=== PATIENT | male | born 1960 | race Two or more races ===

== ENCOUNTER 2017-08-30 10:34 | Inpatient (IN) | payer OTHER ==
[~2017-08-30] VITALS: Ht 170.2 cm; Wt 74.1 kg
[2017-08-30 11:09] LABS: Hematocrit 39.9 % (41.0-53.0); Hemoglobin 13.8 g/dL (13.5-17.5); Mean Corpuscular Hemoglobin 28.5 pg (28.0-32.0); Mean Corpuscular Hgb Conc. 34.7 g/dL (32.0-36.0); Mean Corpuscular Volume 82.2 fL (80.0-100.0); Platelet Count (auto) 82 10^3/uL (140-450); Red Blood Cells 4.86 10^6/uL (4.5-5.90); Red Cell Distribution Width 15.3 % (11.8-14.3); White Blood Cell 4.5 10^3/uL (4.4-10.8)
[2017-08-30 11:13] LABS: Band Neutrophils % (manual) 0; Basophils % (manual) 0 (0.0-2.0); Blast Cells 0; Metamyelocytes % 0; Myelocytes % 0; Promyelocytes % 0; Reactive Lymphocytes 0
[2017-08-30 11:22] LABS: INR 1.22 (0.9-1.15); Partial Thromboplastin Time 28.6 sec (22.64-33.71); Prothrombin Time 13.3 sec (9.37-12.3)
[2017-08-30 11:23] LABS: Lymphocytes % (manual) 37 (10.0-50.0)
[2017-08-30 11:24] LABS: Eosinophils % (manual) 5 (0-7); Monocytes % (manual) 24 (0-12)
[2017-08-30] MEDS ORDERED: LACTULOSE 20Gm/30ML SOLN PO ONE (11:30)
[2017-08-30 11:40] LABS: Alanine Aminotransferase 21 U/L (16-61); Albumin 2.7 g/dL (3.4-5.0); Alkaline Phosphatase 90 U/L (45-117); Anion Gap 8 (5-15); Aspartate Aminotransferase 24 U/L (15-37); BUN/Creatinine Ratio 18.3; Bilirubin, Total 1.6 mg/dL (0.2-1.0); Blood Urea Nitrogen 15 mg/dL (7-18); Calcium 8.5 mg/dL (8.5-10.1); Carbon Dioxide 22 mmol/L (21-32); Chloride 110 mmol/L (98-107); GFR African American 125 mL/min; GFR Non-African American 104 mL/min; Glucose 92 mg/dL (74-106); Magnesium 2.6 mg/dL (1.6-2.6); Potassium 3.8 mmol/L (3.5-5.1); Sodium 140 mmol/L (136-145); Total Protein 6.6 g/dL (6.4-8.2)
[2017-08-30] MEDS ORDERED: NITROGLYCERIN 0.4 MG SL TAB SL PRN (12:15)
[2017-08-30] MEDS ORDERED: MORPHINE SULFATE 4 MG/ML SYR/VIAL IV PRN (12:15)
[2017-08-30] MEDS ORDERED: PROPRANOLOL HCL 20 MG TAB PO ONE (12:16)
[2017-08-30 12:34] LABS: Urine Amorphous Crystal FEW /hpf (None Seen); Urine Bacteria NONE SEEN /hpf (None Seen); Urine Blood Negative /uL (Negative); Urine Specific Gravity 1.019 (1.001-1.035); Urine WBC 2 /hpf (0 - 3)
[2017-08-30 16:27] VITALS: BP 137/84
[2017-08-30] MEDS: LACTULOSE 20Gm/30ML SOLN PO SCH ×2 (17:34→22:26)
[2017-08-30 21:39] VITALS: BP 130/73
[2017-08-31] VITALS (7 sets, daily range): BP systolic 118–159; BP diastolic 66–99
[2017-08-31] MEDS: LACTULOSE 20Gm/30ML SOLN PO SCH ×6 (02:00→22:00)
[2017-08-31 05:58] LABS: Basophils # (auto) 0.2 uL; Basophils % (auto) 4.9 % (0.0-2.0); Eosinophils # (auto) 0.4 uL; Eosinophils % (auto) 10.2 % (0.0-7.0); Hematocrit 42.2 % (41.0-53.0); Hemoglobin 14.7 g/dL (13.5-17.5); Lymphocytes # (auto) 0.9 uL; Lymphocytes % (auto) 23.1 % (10.0-50.0); Mean Corpuscular Hemoglobin 28.9 pg (28.0-32.0); Mean Corpuscular Hgb Conc. 34.8 g/dL (32.0-36.0); Mean Corpuscular Volume 82.9 fL (80.0-100.0); Monocytes # (auto) 0.5 uL; Monocytes % (auto) 14.3 % (0.0-12.0); Neutrophils # (auto) 1.8 uL; Neutrophils % (auto) 47.5 % (37.0-80.0); Nucleated Red Blood Cells % 0.2 %; Platelet Count (auto) 99 10^3/uL (140-450); Red Blood Cells 5.09 10^6/uL (4.5-5.90); Red Cell Distribution Width 15.3 % (11.8-14.3); White Blood Cell 3.7 10^3/uL (4.4-10.8)
[2017-08-31 06:22] LABS: Albumin 2.8 g/dL (3.4-5.0); BUN/Creatinine Ratio 10.6; Calcium 8.2 mg/dL (8.5-10.1); Potassium 3.6 mmol/L (3.5-5.1)
[2017-08-31 06:26] LABS: Bilirubin, Total 2.8 mg/dL (0.2-1.0); Total Protein 6.6 g/dL (6.4-8.2)
[2017-08-31] MEDS ORDERED: PROPRANOLOL HCL 20 MG TAB PO ONE (10:00)
[2017-08-31] MEDS ORDERED: PROPRANOLOL HCL 20 MG TAB PO SCH (10:00)
[2017-08-31] MEDS: D5W/SOD CHL 0.45%/KCL 20MEQ 1,000 ML IV SCH (20:30)
[2017-09-01] MEDS: LACTULOSE 20Gm/30ML SOLN PO SCH ×6 (02:00→22:37)
[2017-09-01] MEDS: D5W/SOD CHL 0.45%/KCL 20MEQ 1,000 ML IV SCH ×3 (03:35→20:15)
[2017-09-01 05:00] VITALS: BP 109/67
[2017-09-01 07:40] LABS: Albumin 2.7 g/dL (3.4-5.0); Bilirubin, Total 2.5 mg/dL (0.2-1.0); Calcium 8.3 mg/dL (8.5-10.1); Potassium 3.8 mmol/L (3.5-5.1); Total Protein 6.4 g/dL (6.4-8.2)
[2017-09-01 08:00] VITALS: BP 120/72
[2017-09-01 09:24] VITALS: BP 120/72
[2017-09-01] MEDS: PROPRANOLOL HCL 20 MG TAB PO SCH ×2 (11:41→22:36)
[2017-09-01 12:50] VITALS: BP 127/73
[2017-09-01 17:27] VITALS: BP 116/69
[2017-09-01 22:16] VITALS: BP 125/66
[2017-09-02] VITALS (7 sets, daily range): BP systolic 110–127; BP diastolic 63–68
[2017-09-02] MEDS: LACTULOSE 20Gm/30ML SOLN PO SCH ×6 (02:00→22:42)
[2017-09-02] MEDS: D5W/SOD CHL 0.45%/KCL 20MEQ 1,000 ML IV SCH ×3 (06:30→21:21)
[2017-09-02 07:56] LABS: Albumin 2.4 g/dL (3.4-5.0); BUN/Creatinine Ratio 10.5; Bilirubin, Total 2.1 mg/dL (0.2-1.0); Calcium 7.9 mg/dL (8.5-10.1); Potassium 3.9 mmol/L (3.5-5.1)
[2017-09-02] MEDS: PROPRANOLOL HCL 20 MG TAB PO SCH ×2 (10:46→22:43)
[2017-09-03] MEDS: LACTULOSE 20Gm/30ML SOLN PO SCH ×6 (01:51→22:26)
[2017-09-03] MEDS: D5W/SOD CHL 0.45%/KCL 20MEQ 1,000 ML IV SCH ×3 (04:28→22:27)
[2017-09-03 05:07] VITALS: BP 104/72
[2017-09-03] MEDS: PROPRANOLOL HCL 20 MG TAB PO SCH ×2 (09:13→22:27)
[2017-09-03 09:17] VITALS: BP 121/68
[2017-09-03 14:12] VITALS: BP 127/79
[2017-09-03 14:31] LABS: Basophils # (auto) 0 uL; Basophils % (auto) 0.3 % (0.0-2.0); Eosinophils # (auto) 0.4 uL; Eosinophils % (auto) 7.3 % (0.0-7.0); Hematocrit 41.6 % (41.0-53.0); Hemoglobin 14.5 g/dL (13.5-17.5); Lymphocytes # (auto) 0.3 uL; Lymphocytes % (auto) 5.8 % (10.0-50.0); Mean Corpuscular Hemoglobin 29.1 pg (28.0-32.0); Mean Corpuscular Hgb Conc. 34.8 g/dL (32.0-36.0); Mean Corpuscular Volume 83.7 fL (80.0-100.0); Monocytes # (auto) 0.5 uL; Monocytes % (auto) 8.8 % (0.0-12.0); Neutrophils # (auto) 4.1 uL; Neutrophils % (auto) 77.8 % (37.0-80.0); Nucleated Red Blood Cells % 0.2 %; Platelet Count (auto) 80 10^3/uL (140-450); Red Blood Cells 4.97 10^6/uL (4.5-5.90); Red Cell Distribution Width 15.4 % (11.8-14.3); White Blood Cell 5.3 10^3/uL (4.4-10.8)
[2017-09-03] MEDS: MEPERIDINE HCL (50 MG/ML) 1 ML VIAL IV PRN ×2 (14:37→22:50)
[2017-09-03] MEDS: ONDANSETRON HCL 4 MG/2 ML VIAL IV PRN ×2 (14:37→22:50)
[2017-09-03] MEDS: NEOMYCIN SULFATE 500 MG TAB PO SCH ×2 (14:47→22:27)
[2017-09-03 14:50] LABS: Albumin 2.7 g/dL (3.4-5.0); BUN/Creatinine Ratio 6.9; Bilirubin, Total 2.8 mg/dL (0.2-1.0); Calcium 8.3 mg/dL (8.5-10.1); Potassium 4.2 mmol/L (3.5-5.1); Total Protein 6.4 g/dL (6.4-8.2)
[2017-09-03 17:26] VITALS: BP 115/87
[2017-09-03 20:00] VITALS: BP 122/61
[2017-09-03 22:00] VITALS: BP 122/61
[2017-09-04] MEDS: LACTULOSE 20Gm/30ML SOLN PO SCH ×6 (01:40→22:55)
[2017-09-04 05:00] VITALS: BP 105/65
[2017-09-04] MEDS: NEOMYCIN SULFATE 500 MG TAB PO SCH ×3 (05:52→22:56)
[2017-09-04] MEDS: D5W/SOD CHL 0.45%/KCL 20MEQ 1,000 ML IV SCH ×2 (05:53→09:30)
[2017-09-04] MEDS: ONDANSETRON HCL 4 MG/2 ML VIAL IV PRN ×3 (06:37→18:15)
[2017-09-04] MEDS: MEPERIDINE HCL (50 MG/ML) 1 ML VIAL IV PRN ×4 (06:37→22:56)
[2017-09-04 09:00] VITALS: BP 101/62
[2017-09-04] MEDS: PROPRANOLOL HCL 20 MG TAB PO SCH ×2 (09:30→22:00)
[2017-09-04 12:00] VITALS: BP 118/58
[2017-09-04 16:00] VITALS: BP_SYST 118; BP_SYST 132; BP_DIAS 71; BP_DIAS 77
[2017-09-04 22:00] VITALS: BP 122/66
[2017-09-05] MEDS: D5W/SOD CHL 0.45%/KCL 20MEQ 1,000 ML IV SCH ×3 (01:07→15:49)
[2017-09-05] MEDS: LACTULOSE 20Gm/30ML SOLN PO SCH ×5 (02:01→22:35)
[2017-09-05] MEDS: MEPERIDINE HCL (50 MG/ML) 1 ML VIAL IV PRN ×4 (04:07→20:02)
[2017-09-05 05:00] VITALS: BP 101/59
[2017-09-05] MEDS: NEOMYCIN SULFATE 500 MG TAB PO SCH ×3 (05:34→22:36)
[2017-09-05 09:00] VITALS: BP 110/60
[2017-09-05] MEDS: PROPRANOLOL HCL 20 MG TAB PO SCH ×2 (10:00→22:36)
[2017-09-05 12:23] VITALS: BP 116/59
[2017-09-05 16:45] VITALS: BP 112/59
[2017-09-05 22:00] VITALS: BP 111/67
[2017-09-06] MEDS: D5W/SOD CHL 0.45%/KCL 20MEQ 1,000 ML IV SCH ×3 (00:15→14:18)
[2017-09-06] MEDS: MEPERIDINE HCL (50 MG/ML) 1 ML VIAL IV PRN ×4 (04:10→20:14)
[2017-09-06 05:00] VITALS: BP 130/68
[2017-09-06] MEDS: LACTULOSE 20Gm/30ML SOLN PO SCH ×4 (05:57→22:03)
[2017-09-06] MEDS: NEOMYCIN SULFATE 500 MG TAB PO SCH ×3 (05:57→22:03)
[2017-09-06 07:23] LABS: Calcium 7.2 mg/dL (8.5-10.1); Potassium 5.3 mmol/L (3.5-5.1)
[2017-09-06 07:26] LABS: BUN/Creatinine Ratio 8.9; Bilirubin, Total 1.9 mg/dL (0.2-1.0)
[2017-09-06 09:00] VITALS: BP 111/60
[2017-09-06] MEDS: PROPRANOLOL HCL 20 MG TAB PO SCH ×2 (10:00→22:00)
[2017-09-06 13:00] VITALS: BP 119/48
[2017-09-06 17:00] VITALS: BP 102/57
[2017-09-06] MEDS: NutriHep 250 mL Bottle PO SCH (18:00)
[2017-09-06 22:00] VITALS: BP 102/66
[2017-09-06 22:02] VITALS: BP 102/66
[2017-09-07] MEDS: D5W/SOD CHL 0.45%/KCL 20MEQ 1,000 ML IV SCH ×2 (00:25→09:35)
[2017-09-07] MEDS: LACTULOSE 20Gm/30ML SOLN PO SCH ×6 (02:12→22:05)
[2017-09-07] MEDS: MEPERIDINE HCL (50 MG/ML) 1 ML VIAL IV PRN ×2 (02:13→08:42)
[2017-09-07 05:48] VITALS: BP 112/60
[2017-09-07] MEDS: NEOMYCIN SULFATE 500 MG TAB PO SCH ×3 (06:03→22:05)
[2017-09-07 07:49] LABS: Albumin 2.4 g/dL (3.4-5.0); BUN/Creatinine Ratio 13.2; Bilirubin, Total 1.6 mg/dL (0.2-1.0); Calcium 7.9 mg/dL (8.5-10.1); Potassium 3.9 mmol/L (3.5-5.1); Total Protein 5.8 g/dL (6.4-8.2)
[2017-09-07] MEDS: NutriHep 250 mL Bottle PO SCH ×2 (08:00→18:00)
[2017-09-07 09:46] VITALS: BP 121/67
[2017-09-07] MEDS: PROPRANOLOL HCL 20 MG TAB PO SCH ×2 (10:44→22:00)
[2017-09-07 13:57] VITALS: BP 97/49
[2017-09-07] MEDS: traMADol HCL 50 MG TAB PO PRN ×2 (14:27→22:17)
[2017-09-07 16:48] VITALS: BP 126/68
[2017-09-07 21:36] VITALS: BP 116/72
[2017-09-08] MEDS: LACTULOSE 20Gm/30ML SOLN PO SCH ×5 (02:08→17:42)
[2017-09-08] MEDS: traMADol HCL 50 MG TAB PO PRN ×2 (04:51→17:42)
[2017-09-08 05:22] VITALS: BP 118/69
[2017-09-08] MEDS: NEOMYCIN SULFATE 500 MG TAB PO SCH ×2 (06:23→15:34)
[2017-09-08 08:00] VITALS: BP 105/54
[2017-09-08] MEDS: PROPRANOLOL HCL 20 MG TAB PO SCH (09:16)
[2017-09-08] MEDS: NutriHep 250 mL Bottle PO SCH ×2 (09:16→17:47)
[2017-09-08 12:00] VITALS: BP 122/48
[2017-09-08 16:47] VITALS: BP 107/41
[2017-09-08 22:00] VITALS: BP 112/62
[2017-09-09] MEDS: traMADol HCL 50 MG TAB PO PRN ×3 (00:26→20:08)
[2017-09-09] MEDS: NEOMYCIN SULFATE 500 MG TAB PO SCH ×3 (00:26→13:58)
[2017-09-09] MEDS: LACTULOSE 20Gm/30ML SOLN PO SCH ×7 (00:26→17:48)
[2017-09-09] MEDS: PROPRANOLOL HCL 20 MG TAB PO SCH ×3 (00:26→22:00)
[2017-09-09 04:58] VITALS: BP 114/70
[2017-09-09 07:28] LABS: BUN/Creatinine Ratio 13.3; Potassium 3.9 mmol/L (3.5-5.1)
[2017-09-09] MEDS: NutriHep 250 mL Bottle PO SCH ×2 (08:00→17:48)
[2017-09-09 08:42] VITALS: BP 118/63
[2017-09-09 12:55] VITALS: BP 120/65
[2017-09-09 16:28] VITALS: BP 122/71
[2017-09-09 22:00] VITALS: BP 101/56
[2017-09-10] VITALS (7 sets, daily range): BP systolic 105–125; BP diastolic 57–72
[2017-09-10] MEDS: LACTULOSE 20Gm/30ML SOLN PO SCH ×10 (00:22→22:12)
[2017-09-10] MEDS: PROPRANOLOL HCL 20 MG TAB PO SCH ×2 (10:00→22:00)
[2017-09-10] MEDS: NutriHep 250 mL Bottle PO SCH ×2 (10:22→18:31)
[2017-09-10] MEDS: traMADol HCL 50 MG TAB PO PRN ×2 (12:34→18:38)
[2017-09-11] VITALS (7 sets, daily range): BP systolic 109–135; BP diastolic 57–74
[2017-09-11] MEDS: LACTULOSE 20Gm/30ML SOLN PO SCH ×9 (00:01→21:38)
[2017-09-11] MEDS: traMADol HCL 50 MG TAB PO PRN ×3 (00:34→21:39)
[2017-09-11 06:05] LABS: BUN/Creatinine Ratio 12.2; Calcium 7.9 mg/dL (8.5-10.1); Potassium 3.9 mmol/L (3.5-5.1)
[2017-09-11] MEDS: NutriHep 250 mL Bottle PO SCH ×2 (08:17→18:00)
[2017-09-11] MEDS: PROPRANOLOL HCL 20 MG TAB PO SCH ×2 (10:00→21:39)
[2017-09-12] MEDS: LACTULOSE 20Gm/30ML SOLN PO SCH ×4 (01:45→14:00)
[2017-09-12 05:20] VITALS: BP 129/67
[2017-09-12 07:01] LABS: BUN/Creatinine Ratio 11.3; Calcium 7.8 mg/dL (8.5-10.1); Potassium 3.6 mmol/L (3.5-5.1)
[2017-09-12] MEDS: NutriHep 250 mL Bottle PO SCH (08:00)
[2017-09-12 09:00] VITALS: BP 122/71
[2017-09-12] MEDS: PROPRANOLOL HCL 20 MG TAB PO SCH (10:00)
[2017-09-12] MEDS ORDERED: LACT10SO3 PO (12:47)
[2017-09-12 13:00] VITALS: BP 136/64
[2017-09-12 13:37] VITALS: BP 122/71
[2017-09-12] MEDS: traMADol HCL 50 MG TAB PO PRN (16:16)
[2017-09-12 17:00] VITALS: BP 128/66
== END 2017-09-12 17:35 | DRG 441 ==
LOC: EDBD 10:34 → ER 10:34 → OVERFLOW 10:35 → EEVIPCON 10:35 → EAST 13:22
PROVIDERS: ADMIT Internal Medicine; ATTEND Internal Medicine
DX: K72.00 Acute and subacute hepatic failure without coma (principal); E43 Unspecified severe protein-calorie malnutrition; I11.9 Hypertensive heart disease without heart failure; K72.10 Chronic hepatic failure without coma; K74.60 Unspecified cirrhosis of liver; E72.20 Disorder of urea cycle metabolism, unspecified; B19.20 Unspecified viral hepatitis C without hepatic coma; F32.9 Major depressive disorder, single episode, unspecified; R16.1 Splenomegaly, not elsewhere classified; K80.20 Calculus of gallbladder without cholecystitis without obstruction; F41.9 Anxiety disorder, unspecified; J44.9 Chronic obstructive pulmonary disease, unspecified; E78.00 Pure hypercholesterolemia, unspecified; Z82.49 Family history of ischemic heart disease and other diseases of the circulatory system; Z68.25 Body mass index [BMI] 25.0-25.9, adult; Z90.49 Acquired absence of other specified parts of digestive tract
CPT/HCPCS: 36415; 70450; 71045; 74021; 74176; 76705; 80048; 80053; 81001; 82140; 82150; 83690; 83735; 84443; 84484; 85007; 85025; 85027; 85610; 85730; 87081; 94761; J2405

== ENCOUNTER 2018-02-12 20:17 | Inpatient (IN) | payer OTHER ==
[~2018-02-12] VITALS: Ht 167.6 cm; Wt 74.9 kg
[~2018-02-12 20:17] MED LIST: LACT10SO3 PO
[2018-02-12] MEDS ORDERED: SODIUM CHLORIDE 0.9% 500 ML IVB ONE (21:06)
[2018-02-12] MEDS ORDERED: PROMETHAZINE HCL 25 MG/ML 1ML IV ONE (21:15)
[2018-02-12] MEDS ORDERED: MORPHINE SULFATE 4 MG/ML SYR/VIAL IV ONE (21:15)
[2018-02-12] MEDS ORDERED: ACETAMINOPHEN 325 MG TAB PO ONE (21:30)
[2018-02-12] MEDS ORDERED: metroNIDAZOLE 500MG/100ML 100 ML IV ONE (21:30)
[2018-02-12 21:57] LABS: Hemoglobin 13.2 g/dL (13.5-17.5); Mean Corpuscular Hemoglobin 30.4 pg (28.0-32.0); Mean Corpuscular Hgb Conc. 35.8 g/dL (32.0-36.0); Mean Corpuscular Volume 84.9 fL (80.0-100.0); Platelet Count (auto) 74 10^3/uL (140-450); Red Blood Cells 4.36 10^6/uL (4.5-5.90); Red Cell Distribution Width 15.8 % (11.8-14.3); White Blood Cell 4.9 10^3/uL (4.4-10.8)
[2018-02-12 21:59] LABS: Basophils % (manual) 0 (0.0-2.0); Blast Cells 0; Eosinophils % (manual) 0 (0-7); Metamyelocytes % 0; Myelocytes % 0; Promyelocytes % 0; Reactive Lymphocytes 0
[2018-02-12 22:02] LABS: INR 1.26 (0.9-1.15); Prothrombin Time 13.3 sec (9.27-12.13)
[2018-02-12 22:17] LABS: Albumin 2.2 g/dL (3.4-5.0); Amylase 111 U/L (25-115); Anion Gap 11 (5-15); BUN/Creatinine Ratio 24.4; Blood Urea Nitrogen 20 mg/dL (7-18); Calcium 7.6 mg/dL (8.5-10.1); Carbon Dioxide 18 mmol/L (21-32); Chloride 110 mmol/L (98-107); GFR African American 125 mL/min; GFR Non-African American 103 mL/min; Glucose 90 mg/dL (74-106); Lipase 171 U/L (73-393); Magnesium 1.9 mg/dL (1.6-2.6); Potassium 3.1 mmol/L (3.5-5.1); Sodium 139 mmol/L (136-145)
[2018-02-12 22:22] LABS: Alanine Aminotransferase 18 U/L (16-61); Alkaline Phosphatase 84 U/L (45-117); Aspartate Aminotransferase 20 U/L (15-37); Bilirubin, Total 3.5 mg/dL (0.2-1.0); Lactic Acid w/Reflex 2.3 mmol/L (0.4-2.0); Total Protein 5.5 g/dL (6.4-8.2)
[2018-02-12 22:26] LABS: Band Neutrophils % (manual) 1; Lymphocytes % (manual) 2 (10.0-50.0); Monocytes % (manual) 1 (0-12)
[2018-02-13] MEDS ORDERED: ONDANSETRON HCL 4 MG/2 ML VIAL IV PRN ×2 (02:15→12:15)
[2018-02-13] MEDS ORDERED: fentaNYL CITRATE 100 MCG/2 ML VL IV PRN (02:30)
[2018-02-13] MEDS: D5W/SOD CHL 0.45%/KCL 20MEQ 1,000 ML IV SCH ×3 (02:39→22:14)
[2018-02-13 03:30] VITALS: BP 107/62
[2018-02-13 05:00] VITALS: BP 113/69
[2018-02-13 08:00] VITALS: BP 109/67
[2018-02-13] MEDS: PIPERACILLIN-TAZOB 3.375GM 100 ML IV SCH ×3 (08:17→18:12)
[2018-02-13] MEDS: FAMOTIDINE 20 MG TAB PO SCH ×2 (10:00→22:14)
[2018-02-13 12:00] VITALS: BP 106/56
[2018-02-13] MEDS: MORPHINE SULF INJ 2 MG/ML SYRINGE 1ML IV PRN ×3 (12:28→22:15)
[2018-02-13 16:00] VITALS: BP 105/58
[2018-02-13] MEDS: LACTULOSE 20Gm/30ML SOLN PO SCH ×2 (18:12→22:14)
[2018-02-13 22:00] VITALS: BP 114/65
[2018-02-13] MEDS: PANTOPRAZOLE 40 MG/10 ML VIAL IV SCH (22:14)
[2018-02-14] MEDS: PIPERACILLIN-TAZOB 3.375GM 100 ML IV SCH ×5 (00:11→23:50)
[2018-02-14] MEDS: LACTULOSE 20Gm/30ML SOLN PO SCH ×6 (02:00→22:13)
[2018-02-14] MEDS: MORPHINE SULF INJ 2 MG/ML SYRINGE 1ML IV PRN ×2 (04:48→08:52)
[2018-02-14 05:00] VITALS: BP 109/53
[2018-02-14 07:01] LABS: Albumin 1.9 g/dL (3.4-5.0); BUN/Creatinine Ratio 17.8; Calcium 7.3 mg/dL (8.5-10.1); Potassium 3.9 mmol/L (3.5-5.1)
[2018-02-14 07:04] LABS: Bilirubin, Total 2.3 mg/dL (0.2-1.0); Total Protein 5.2 g/dL (6.4-8.2)
[2018-02-14 08:00] VITALS: BP 132/72
[2018-02-14 09:08] LABS: Hematocrit 36.7 % (41.0-53.0); Mean Corpuscular Hemoglobin 30.9 pg (28.0-32.0); Mean Corpuscular Hgb Conc. 35.4 g/dL (32.0-36.0); Mean Corpuscular Volume 87.2 fL (80.0-100.0); Platelet Count (auto) 65 10^3/uL (140-450); Red Blood Cells 4.21 10^6/uL (4.5-5.90); Red Cell Distribution Width 16.4 % (11.8-14.3); White Blood Cell 9.4 10^3/uL (4.4-10.8)
[2018-02-14 09:19] LABS: Basophils % (manual) 0 (0.0-2.0); Blast Cells 0; Metamyelocytes % 0; Myelocytes % 0; Promyelocytes % 0; Reactive Lymphocytes 0
[2018-02-14 10:11] LABS: Band Neutrophils % (manual) 3; Eosinophils % (manual) 3 (0-7); Lymphocytes % (manual) 9 (10.0-50.0); Monocytes % (manual) 14 (0-12)
[2018-02-14] MEDS: PANTOPRAZOLE 40 MG/10 ML VIAL IV SCH ×2 (10:43→22:13)
[2018-02-14] MEDS: FAMOTIDINE 20 MG TAB PO SCH ×2 (10:44→22:13)
[2018-02-14 12:00] VITALS: BP 116/65
[2018-02-14] MEDS: D5W/SOD CHL 0.45%/KCL 20MEQ 1,000 ML IV SCH (14:24)
[2018-02-14 16:00] VITALS: BP 141/81
[2018-02-14] MEDS: MORPHINE SULFATE 4 MG/ML SYR/VIAL IV PRN ×2 (16:31→20:32)
[2018-02-14 22:00] VITALS: BP 151/79
[2018-02-15] MEDS: MORPHINE SULFATE 4 MG/ML SYR/VIAL IV PRN ×2 (00:31→05:55)
[2018-02-15] MEDS: LACTULOSE 20Gm/30ML SOLN PO SCH ×5 (02:23→18:04)
[2018-02-15] MEDS: D5W/SOD CHL 0.45%/KCL 20MEQ 1,000 ML IV SCH (04:15)
[2018-02-15 05:00] VITALS: BP 121/70
[2018-02-15] MEDS: PIPERACILLIN-TAZOB 3.375GM 100 ML IV SCH ×2 (05:55→14:40)
[2018-02-15 07:36] LABS: Albumin 2.1 g/dL (3.4-5.0); BUN/Creatinine Ratio 7.5; Bilirubin, Total 2.8 mg/dL (0.2-1.0); Calcium 7.3 mg/dL (8.5-10.1); Potassium 4.7 mmol/L (3.5-5.1); Total Protein 5.2 g/dL (6.4-8.2)
[2018-02-15 09:00] VITALS: BP 137/69
[2018-02-15] MEDS: PANTOPRAZOLE 40 MG/10 ML VIAL IV SCH (09:40)
[2018-02-15] MEDS: FAMOTIDINE 20 MG TAB PO SCH ×2 (09:40→20:55)
[2018-02-15] MEDS ORDERED: MORPHINE SULFATE 4 MG/ML SYR/VIAL IV PRN (11:15)
[2018-02-15] MEDS ORDERED: MORPHINE SULF INJ 2 MG/ML SYRINGE 1ML IV PRN (11:15)
[2018-02-15] MEDS ORDERED: NALOXONE HCL 0.4 MG/ML VIAL ONE (11:27)
[2018-02-15] MEDS ORDERED: fentaNYL CITRATE 100 MCG/2 ML VL ONE (11:27)
[2018-02-15] MEDS ORDERED: FLUMAZENIL 0.1 MG/ML INJ 10ML MDV IV ONE (11:27)
[2018-02-15] MEDS ORDERED: LIDOCAINE VISCOUS 2% 15ML UD ONE (11:27)
[2018-02-15] MEDS ORDERED: MIDAZOLAM HCL 5 MG/ML-1ML VIAL ONE (11:28)
[2018-02-15] MEDS ORDERED: diphenhdrAMINE HCL 50 MG/1 ML VL ONE (11:28)
[2018-02-15] MEDS ORDERED: SODIUM CHLORIDE LOCK 10 ML ONE (11:29)
[2018-02-15 13:00] VITALS: BP 141/87
[2018-02-15] MEDS: traMADol HCL 50 MG TAB PO PRN ×2 (14:07→20:55)
[2018-02-15 16:52] VITALS: BP 132/74
[2018-02-16] MEDS: LACTULOSE 20Gm/30ML SOLN PO SCH ×6 (01:01→22:48)
[2018-02-16] MEDS: PANTOPRAZOLE 40 MG TAB PO SCH ×3 (01:01→20:47)
[2018-02-16] MEDS: traMADol HCL 50 MG TAB PO PRN ×2 (05:13→20:47)
[2018-02-16 05:18] VITALS: BP 136/69
[2018-02-16 08:30] VITALS: BP 135/74
[2018-02-16] MEDS: FAMOTIDINE 20 MG TAB PO SCH ×2 (09:24→20:47)
[2018-02-16 12:48] VITALS: BP 128/80
[2018-02-16 16:41] VITALS: BP 124/63
[2018-02-16 21:54] VITALS: BP 141/78
[2018-02-17] MEDS: traMADol HCL 50 MG TAB PO PRN ×3 (04:44→18:03)
[2018-02-17 04:55] VITALS: BP 130/69
[2018-02-17] MEDS: LACTULOSE 20Gm/30ML SOLN PO SCH ×4 (05:46→21:24)
[2018-02-17 07:48] LABS: Albumin 2.2 g/dL (3.4-5.0); Calcium 8.3 mg/dL (8.5-10.1); Potassium 3.6 mmol/L (3.5-5.1)
[2018-02-17 07:54] LABS: Bilirubin, Total 1.8 mg/dL (0.2-1.0); Total Protein 6.1 g/dL (6.4-8.2)
[2018-02-17 08:30] VITALS: BP 135/70
[2018-02-17] MEDS: PANTOPRAZOLE 40 MG TAB PO SCH ×2 (10:00→21:24)
[2018-02-17] MEDS: FAMOTIDINE 20 MG TAB PO SCH ×2 (10:48→21:24)
[2018-02-17 12:30] VITALS: BP 119/62
[2018-02-17 17:29] VITALS: BP 149/74
[2018-02-17 20:00] VITALS: BP 136/85
[2018-02-17 22:00] VITALS: BP 136/85
[2018-02-18 05:04] VITALS: BP 120/69
[2018-02-18] MEDS: LACTULOSE 20Gm/30ML SOLN PO SCH ×4 (05:43→21:19)
[2018-02-18 07:50] LABS: Albumin 2.2 g/dL (3.4-5.0); BUN/Creatinine Ratio 10.7; Bilirubin, Total 1.7 mg/dL (0.2-1.0); Calcium 7.7 mg/dL (8.5-10.1); Potassium 3.3 mmol/L (3.5-5.1); Total Protein 6.1 g/dL (6.4-8.2)
[2018-02-18] MEDS: traMADol HCL 50 MG TAB PO PRN ×3 (08:34→23:31)
[2018-02-18] MEDS ORDERED: ONDANSETRON ODT 4 MG TAB PO PRN (08:45)
[2018-02-18 09:26] VITALS: BP 130/72
[2018-02-18] MEDS: FAMOTIDINE 20 MG TAB PO SCH ×2 (10:32→21:02)
[2018-02-18] MEDS: PANTOPRAZOLE 40 MG TAB PO SCH ×2 (10:32→21:02)
[2018-02-18 13:59] VITALS: BP 133/72
[2018-02-18 18:03] VITALS: BP 117/76
[2018-02-18 22:00] VITALS: BP 140/79
[2018-02-19 05:00] VITALS: BP 119/71
[2018-02-19] MEDS: LACTULOSE 20Gm/30ML SOLN PO SCH ×4 (06:07→22:00)
[2018-02-19] MEDS: traMADol HCL 50 MG TAB PO PRN ×3 (06:08→21:16)
[2018-02-19 08:56] LABS: Albumin 2.2 g/dL (3.4-5.0); Anion Gap 11 (5-15); Blood Urea Nitrogen 8 mg/dL (7-18); Calcium 7.7 mg/dL (8.5-10.1); Carbon Dioxide 20 mmol/L (21-32); Chloride 109 mmol/L (98-107); Glucose 80 mg/dL (74-106); Potassium 3.7 mmol/L (3.5-5.1); Sodium 140 mmol/L (136-145)
[2018-02-19 08:58] LABS: BUN/Creatinine Ratio 10.7; GFR African American 139 mL/min; GFR Non-African American 115 mL/min
[2018-02-19 09:00] VITALS: BP 130/72
[2018-02-19 09:01] LABS: Alanine Aminotransferase 20 U/L (16-61); Alkaline Phosphatase 86 U/L (45-117); Aspartate Aminotransferase 19 U/L (15-37); Bilirubin, Total 1.6 mg/dL (0.2-1.0)
[2018-02-19] MEDS: PANTOPRAZOLE 40 MG TAB PO SCH ×2 (09:34→23:44)
[2018-02-19] MEDS: FAMOTIDINE 20 MG TAB PO SCH ×2 (09:34→22:00)
[2018-02-19 13:00] VITALS: BP 126/71
[2018-02-19 17:00] VITALS: BP 135/76
[2018-02-19 23:18] VITALS: BP 127/74
== END 2018-02-20 02:59 | DRG 441 ==
LOC: EEVIPCON 20:17 → EDBD 20:17 → ER 20:17 → EAST 20:18 → ER 02-13 03:04 → EAST 02-13 03:45
PROVIDERS: ADMIT Nurse Practitioner Family; ATTEND Internal Medicine
PROC: 0DJ08ZZ Inspection of Upper Intestinal Tract, Via Natural or Artificial Opening Endoscopic (ICD-10-PCS; principal; 2018-02-15 11:39)
DX: K72.90 Hepatic failure, unspecified without coma (principal); E43 Unspecified severe protein-calorie malnutrition; K80.00 Calculus of gallbladder with acute cholecystitis without obstruction; K76.6 Portal hypertension; K25.9 Gastric ulcer, unspecified as acute or chronic, without hemorrhage or perforation; D69.6 Thrombocytopenia, unspecified; E11.9 Type 2 diabetes mellitus without complications; E78.00 Pure hypercholesterolemia, unspecified; E87.6 Hypokalemia; I10 Essential (primary) hypertension; I70.8 Atherosclerosis of other arteries; J44.9 Chronic obstructive pulmonary disease, unspecified; K29.70 Gastritis, unspecified, without bleeding; K29.80 Duodenitis without bleeding; K74.60 Unspecified cirrhosis of liver; Z82.49 Family history of ischemic heart disease and other diseases of the circulatory system; B19.20 Unspecified viral hepatitis C without hepatic coma; F32.9 Major depressive disorder, single episode, unspecified; F19.90 Other psychoactive substance use, unspecified, uncomplicated; F41.9 Anxiety disorder, unspecified; Z98.49 Cataract extraction status, unspecified eye
CPT/HCPCS: 36415; 43235; 74176; 76705; 80053; 82140; 82150; 83605; 83690; 83735; 84484; 85007; 85027; 85610; 85730; 87040; 87081; 93005; 94761; 96365; 96375; A6257; C9113; J2250; J2405; J2543; J3490

== ENCOUNTER 2018-03-09 10:03 | Inpatient (IN) | payer OTHER ==
[~2018-03-09] VITALS: Ht 167.6 cm; Wt 76.7 kg
[2018-03-09] MEDS ORDERED: SODIUM CHLORIDE 0.9% 1,000 ML IV ONE (10:39)
[2018-03-09 11:50] LABS: Basophils # (auto) 0 uL; Basophils % (auto) 0.7 % (0.0-2.0); Eosinophils # (auto) 0.4 uL; Eosinophils % (auto) 8.9 % (0.0-7.0); Hematocrit 44.6 % (41.0-53.0); Hemoglobin 15.4 g/dL (13.5-17.5); Lymphocytes # (auto) 1.3 uL; Lymphocytes % (auto) 28.5 % (10.0-50.0); Mean Corpuscular Hemoglobin 30.8 pg (28.0-32.0); Mean Corpuscular Hgb Conc. 34.5 g/dL (32.0-36.0); Mean Corpuscular Volume 89.2 fL (80.0-100.0); Monocytes # (auto) 0.6 uL; Monocytes % (auto) 12.2 % (0.0-12.0); Neutrophils # (auto) 2.3 uL; Neutrophils % (auto) 49.7 % (37.0-80.0); Nucleated Red Blood Cells % 0.2 %; Platelet Count (auto) 120 10^3/uL (140-450); Red Cell Distribution Width 16.4 % (11.8-14.3); White Blood Cell 4.6 10^3/uL (4.4-10.8)
[2018-03-09 12:08] LABS: Alanine Aminotransferase 25 U/L (16-61); Albumin 2.6 g/dL (3.4-5.0); Alkaline Phosphatase 121 U/L (45-117); Anion Gap 4 (5-15); Aspartate Aminotransferase 52 U/L (15-37); BUN/Creatinine Ratio 12.1; Bilirubin, Total 2.5 mg/dL (0.2-1.0); Blood Urea Nitrogen 11 mg/dL (7-18); Carbon Dioxide 25 mmol/L (21-32); Chloride 110 mmol/L (98-107); GFR African American 111 mL/min; GFR Non-African American 92 mL/min; Glucose 90 mg/dL (74-106); Magnesium 2.4 mg/dL (1.6-2.6); Sodium 139 mmol/L (136-145); Total Protein 6.9 g/dL (6.4-8.2)
[2018-03-09 12:12] LABS: Potassium 4.8 mmol/L (3.5-5.1)
[2018-03-09 12:22] LABS: Calcium 8.5 mg/dL (8.5-10.1)
[2018-03-09] MEDS ORDERED: LACTULOSE 20Gm/30ML SOLN PO ONE (13:15)
[2018-03-09] MEDS ORDERED: DULoxetine HCL 30 MG CAP PO ONE (15:15)
[2018-03-09] MEDS ORDERED: PROPRANOLOL HCL 20 MG TAB PO ONE (15:15)
[2018-03-09] MEDS ORDERED: SPIRONOLACTONE 25 MG TAB PO ONE (15:15)
[2018-03-09] MEDS: D5W/SOD CHL 0.45% 1,000 ML IV SCH (15:26)
[2018-03-09 16:51] VITALS: BP 126/74
[2018-03-09 16:54] VITALS: BP 126/74
[2018-03-09] MEDS: traMADol HCL 50 MG TAB PO PRN (18:15)
[2018-03-09] MEDS: LACTULOSE 20Gm/30ML SOLN PO SCH ×2 (18:15→23:46)
[2018-03-09 22:00] VITALS: BP 127/78
[2018-03-10] MEDS: D5W/SOD CHL 0.45% 1,000 ML IV SCH ×3 (00:45→20:55)
[2018-03-10 05:00] VITALS: BP 110/65
[2018-03-10] MEDS: LACTULOSE 20Gm/30ML SOLN PO SCH ×4 (05:38→23:36)
[2018-03-10 06:53] LABS: Albumin 2.4 g/dL (3.4-5.0); Calcium 7.9 mg/dL (8.5-10.1); Potassium 3.6 mmol/L (3.5-5.1)
[2018-03-10 06:56] LABS: Bilirubin, Total 2.3 mg/dL (0.2-1.0); Total Protein 6.3 g/dL (6.4-8.2)
[2018-03-10 07:22] LABS: Basophils # (auto) 0.1 uL; Basophils % (auto) 3.7 % (0.0-2.0); Eosinophils # (auto) 0.4 uL; Hematocrit 42.7 % (41.0-53.0); Lymphocytes # (auto) 1.1 uL; Mean Corpuscular Hemoglobin 30.7 pg (28.0-32.0); Mean Corpuscular Hgb Conc. 35.1 g/dL (32.0-36.0); Mean Corpuscular Volume 87.5 fL (80.0-100.0); Monocytes # (auto) 0.4 uL; Monocytes % (auto) 11.2 % (0.0-12.0); Neutrophils # (auto) 1.5 uL; Neutrophils % (auto) 44.1 % (37.0-80.0); Nucleated Red Blood Cells % 0.4 %; Platelet Count (auto) 126 10^3/uL (140-450); Red Blood Cells 4.88 10^6/uL (4.5-5.90); Red Cell Distribution Width 15.8 % (11.8-14.3); White Blood Cell 3.5 10^3/uL (4.4-10.8)
[2018-03-10 08:00] VITALS: BP 134/75
[2018-03-10] MEDS: traMADol HCL 50 MG TAB PO PRN ×2 (08:34→18:22)
[2018-03-10] MEDS: DULoxetine HCL 30 MG CAP PO SCH (10:25)
[2018-03-10] MEDS: SPIRONOLACTONE 25 MG TAB PO SCH (10:25)
[2018-03-10] MEDS: PROPRANOLOL HCL 20 MG TAB PO SCH (10:26)
[2018-03-10 12:00] VITALS: BP 113/67
[2018-03-10 17:00] VITALS: BP 113/71
[2018-03-10] MEDS ORDERED: ceFAZolin 1GM/50ML 50 ML IV ONE (18:24)
[2018-03-10 22:00] VITALS: BP 118/69
[2018-03-11 05:00] VITALS: BP 115/64
[2018-03-11] MEDS: traMADol HCL 50 MG TAB PO PRN ×4 (05:24→22:25)
[2018-03-11] MEDS: LACTULOSE 20Gm/30ML SOLN PO SCH ×5 (05:24→21:34)
[2018-03-11] MEDS: D5W/SOD CHL 0.45% 1,000 ML IV SCH ×2 (06:45→18:31)
[2018-03-11 06:50] LABS: INR 1.25 (0.9-1.15); Prothrombin Time 13.2 sec (9.27-12.13)
[2018-03-11 09:00] VITALS: BP 131/78
[2018-03-11] MEDS: SPIRONOLACTONE 25 MG TAB PO SCH (10:09)
[2018-03-11] MEDS: DULoxetine HCL 30 MG CAP PO SCH (10:09)
[2018-03-11] MEDS: PROPRANOLOL HCL 20 MG TAB PO SCH (10:12)
[2018-03-11] MEDS: POTASSIUM CHL 10 Meq TABLET PO SCH (10:12)
[2018-03-11] MEDS: FUROSEMIDE 20 MG TAB PO SCH (10:13)
[2018-03-11 11:07] LABS: Albumin 2.3 g/dL (3.4-5.0); BUN/Creatinine Ratio 7.8; Bilirubin, Total 2.1 mg/dL (0.2-1.0); Calcium 7.9 mg/dL (8.5-10.1); Potassium 3.9 mmol/L (3.5-5.1); Total Protein 6.2 g/dL (6.4-8.2)
[2018-03-11 13:00] VITALS: BP 130/70
[2018-03-11 17:00] VITALS: BP 130/68
[2018-03-11 22:00] VITALS: BP 119/71
[2018-03-12] MEDS: LACTULOSE 20Gm/30ML SOLN PO SCH ×6 (02:25→21:53)
[2018-03-12] MEDS: traMADol HCL 50 MG TAB PO PRN ×4 (02:32→20:43)
[2018-03-12 05:00] VITALS: BP 107/64
[2018-03-12 06:35] LABS: BUN/Creatinine Ratio 10.5; Calcium 7.9 mg/dL (8.5-10.1); Potassium 3.9 mmol/L (3.5-5.1)
[2018-03-12] MEDS: D5W/SOD CHL 0.45% 1,000 ML IV SCH ×3 (06:36→21:53)
[2018-03-12 08:30] VITALS: BP 104/60
[2018-03-12] MEDS: PROPRANOLOL HCL 20 MG TAB PO SCH (10:00)
[2018-03-12] MEDS: DULoxetine HCL 30 MG CAP PO SCH (10:21)
[2018-03-12] MEDS: SPIRONOLACTONE 25 MG TAB PO SCH (10:25)
[2018-03-12] MEDS: FUROSEMIDE 20 MG TAB PO SCH (10:26)
[2018-03-12] MEDS: POTASSIUM CHL 10 Meq TABLET PO SCH (10:26)
[2018-03-12 12:56] VITALS: BP 100/56
[2018-03-12 16:49] VITALS: BP 107/57
[2018-03-12 22:00] VITALS: BP 114/67
[2018-03-13] MEDS: LACTULOSE 20Gm/30ML SOLN PO SCH ×6 (03:27→22:48)
[2018-03-13] MEDS: traMADol HCL 50 MG TAB PO PRN ×3 (04:48→20:19)
[2018-03-13 05:00] VITALS: BP 107/53
[2018-03-13] MEDS: PROPRANOLOL HCL 20 MG TAB PO SCH (10:00)
[2018-03-13] MEDS: SPIRONOLACTONE 25 MG TAB PO SCH (10:39)
[2018-03-13] MEDS: D5W/SOD CHL 0.45% 1,000 ML IV SCH ×2 (10:39→18:45)
[2018-03-13] MEDS: POTASSIUM CHL 10 Meq TABLET PO SCH (10:40)
[2018-03-13] MEDS: DULoxetine HCL 30 MG CAP PO SCH (10:40)
[2018-03-13] MEDS: FUROSEMIDE 20 MG TAB PO SCH (10:41)
[2018-03-13 13:00] VITALS: BP 115/82
[2018-03-13 17:00] VITALS: BP 123/67
[2018-03-13 22:00] VITALS: BP 131/65
[2018-03-14] MEDS: LACTULOSE 20Gm/30ML SOLN PO SCH ×6 (02:00→21:40)
[2018-03-14 05:00] VITALS: BP 136/72
[2018-03-14] MEDS: traMADol HCL 50 MG TAB PO PRN ×4 (05:42→20:32)
[2018-03-14] MEDS: D5W/SOD CHL 0.45% 1,000 ML IV SCH ×3 (05:44→20:01)
[2018-03-14 06:16] LABS: Albumin 2.3 g/dL (3.4-5.0); BUN/Creatinine Ratio 10.7; Bilirubin, Total 2.3 mg/dL (0.2-1.0); Calcium 7.6 mg/dL (8.5-10.1); Total Protein 6.1 g/dL (6.4-8.2)
[2018-03-14 09:00] VITALS: BP 113/51
[2018-03-14] MEDS: PROPRANOLOL HCL 20 MG TAB PO SCH (10:00)
[2018-03-14] MEDS: POTASSIUM CHL 10 Meq TABLET PO SCH (10:00)
[2018-03-14] MEDS: SPIRONOLACTONE 25 MG TAB PO SCH (11:04)
[2018-03-14] MEDS: DULoxetine HCL 30 MG CAP PO SCH (11:05)
[2018-03-14] MEDS: FUROSEMIDE 20 MG TAB PO SCH (11:06)
[2018-03-14 13:00] VITALS: BP 114/64
[2018-03-14 16:52] VITALS: BP 130/71
[2018-03-14 22:00] VITALS: BP 130/74
[2018-03-15] MEDS: LACTULOSE 20Gm/30ML SOLN PO SCH ×6 (02:00→21:29)
[2018-03-15 05:00] VITALS: BP 113/69
[2018-03-15 08:16] LABS: Albumin 2.3 g/dL (3.4-5.0); BUN/Creatinine Ratio 8.9; Bilirubin, Total 1.8 mg/dL (0.2-1.0); Calcium 7.7 mg/dL (8.5-10.1); Total Protein 5.7 g/dL (6.4-8.2)
[2018-03-15 09:00] VITALS: BP 124/64
[2018-03-15] MEDS: DULoxetine HCL 30 MG CAP PO SCH (09:25)
[2018-03-15] MEDS: SPIRONOLACTONE 25 MG TAB PO SCH (09:25)
[2018-03-15] MEDS: PROPRANOLOL HCL 20 MG TAB PO SCH (09:26)
[2018-03-15] MEDS: POTASSIUM CHL 10 Meq TABLET PO SCH (09:26)
[2018-03-15] MEDS: FUROSEMIDE 20 MG TAB PO SCH (09:27)
[2018-03-15] MEDS: traMADol HCL 50 MG TAB PO PRN ×2 (09:27→21:37)
[2018-03-15] MEDS: D5W/SOD CHL 0.45% 1,000 ML IV SCH ×2 (12:41→21:25)
[2018-03-15 13:00] VITALS: BP 113/73
[2018-03-15 17:00] VITALS: BP 120/69
[2018-03-15 22:00] VITALS: BP 111/67
[2018-03-16] MEDS: LACTULOSE 20Gm/30ML SOLN PO SCH ×6 (03:00→22:24)
[2018-03-16 05:00] VITALS: BP 94/40
[2018-03-16 07:44] VITALS: BP 110/55
[2018-03-16] MEDS: D5W/SOD CHL 0.45% 1,000 ML IV SCH ×2 (08:02→16:47)
[2018-03-16] MEDS: PROPRANOLOL HCL 20 MG TAB PO SCH (10:00)
[2018-03-16] MEDS: SPIRONOLACTONE 25 MG TAB PO SCH (10:24)
[2018-03-16] MEDS: DULoxetine HCL 30 MG CAP PO SCH (10:24)
[2018-03-16] MEDS: FUROSEMIDE 20 MG TAB PO SCH (10:25)
[2018-03-16] MEDS: POTASSIUM CHL 10 Meq TABLET PO SCH (10:25)
[2018-03-16] MEDS: traMADol HCL 50 MG TAB PO PRN ×3 (10:25→22:23)
[2018-03-16 12:06] VITALS: BP 119/68
[2018-03-16 16:48] VITALS: BP 118/72
[2018-03-16 21:43] VITALS: BP 129/71
[2018-03-17] MEDS: D5W/SOD CHL 0.45% 1,000 ML IV SCH ×3 (02:45→21:56)
[2018-03-17] MEDS: LACTULOSE 20Gm/30ML SOLN PO SCH ×6 (03:10→21:56)
[2018-03-17 04:53] VITALS: BP 114/63
[2018-03-17 08:00] VITALS: BP 132/71
[2018-03-17 09:00] VITALS: BP 132/71
[2018-03-17] MEDS: DULoxetine HCL 30 MG CAP PO SCH (10:23)
[2018-03-17] MEDS: POTASSIUM CHL 10 Meq TABLET PO SCH (10:23)
[2018-03-17] MEDS: SPIRONOLACTONE 25 MG TAB PO SCH (10:23)
[2018-03-17] MEDS: traMADol HCL 50 MG TAB PO PRN ×3 (10:24→20:18)
[2018-03-17] MEDS: FUROSEMIDE 20 MG TAB PO SCH (10:24)
[2018-03-17] MEDS: PROPRANOLOL HCL 20 MG TAB PO SCH (10:24)
[2018-03-17 13:00] VITALS: BP 132/89
[2018-03-17 17:00] VITALS: BP 114/68
[2018-03-17 22:00] VITALS: BP 115/71
[2018-03-18] MEDS: LACTULOSE 20Gm/30ML SOLN PO SCH ×6 (02:00→21:16)
[2018-03-18] MEDS: traMADol HCL 50 MG TAB PO PRN ×5 (02:05→21:16)
[2018-03-18 05:00] VITALS: BP 120/69
[2018-03-18 06:34] LABS: Anion Gap 8 (5-15); Blood Urea Nitrogen 7 mg/dL (7-18); Calcium 7.6 mg/dL (8.5-10.1); Carbon Dioxide 21 mmol/L (21-32); Chloride 110 mmol/L (98-107); Glucose 91 mg/dL (74-106); Potassium 3.9 mmol/L (3.5-5.1); Sodium 139 mmol/L (136-145)
[2018-03-18 07:01] LABS: Alanine Aminotransferase 19 U/L (16-61); Alkaline Phosphatase 103 U/L (45-117); Aspartate Aminotransferase 25 U/L (15-37); BUN/Creatinine Ratio 9.3; GFR African American 139 mL/min; GFR Non-African American 115 mL/min; Total Protein 5.6 g/dL (6.4-8.2)
[2018-03-18 08:00] VITALS: BP 125/61
[2018-03-18 09:00] VITALS: BP 125/61
[2018-03-18] MEDS: D5W/SOD CHL 0.45% 1,000 ML IV SCH ×2 (09:46→17:41)
[2018-03-18] MEDS: SPIRONOLACTONE 25 MG TAB PO SCH (10:37)
[2018-03-18] MEDS: PROPRANOLOL HCL 20 MG TAB PO SCH (10:37)
[2018-03-18] MEDS: DULoxetine HCL 30 MG CAP PO SCH (10:38)
[2018-03-18] MEDS: POTASSIUM CHL 10 Meq TABLET PO SCH (10:38)
[2018-03-18] MEDS: FUROSEMIDE 20 MG TAB PO SCH (10:38)
[2018-03-18 13:00] VITALS: BP 115/70
[2018-03-18 17:00] VITALS: BP 139/81
[2018-03-18 22:00] VITALS: BP 122/71
[2018-03-19] MEDS: traMADol HCL 50 MG TAB PO PRN ×4 (00:57→21:53)
[2018-03-19] MEDS: LACTULOSE 20Gm/30ML SOLN PO SCH ×6 (02:00→21:53)
[2018-03-19 04:53] VITALS: BP 111/68
[2018-03-19] MEDS: D5W/SOD CHL 0.45% 1,000 ML IV SCH ×2 (06:09→16:53)
[2018-03-19 09:00] VITALS: BP 131/76
[2018-03-19] MEDS: SPIRONOLACTONE 25 MG TAB PO SCH (10:04)
[2018-03-19] MEDS: POTASSIUM CHL 10 Meq TABLET PO SCH (10:04)
[2018-03-19] MEDS: PROPRANOLOL HCL 20 MG TAB PO SCH (10:05)
[2018-03-19] MEDS: DULoxetine HCL 30 MG CAP PO SCH (10:05)
[2018-03-19] MEDS: FUROSEMIDE 20 MG TAB PO SCH (10:05)
[2018-03-19 13:00] VITALS: BP 126/59
[2018-03-19 17:00] VITALS: BP 110/66
[2018-03-19 22:00] VITALS: BP 108/63
[2018-03-20] MEDS: LACTULOSE 20Gm/30ML SOLN PO SCH ×6 (02:00→21:25)
[2018-03-20] MEDS: D5W/SOD CHL 0.45% 1,000 ML IV SCH ×4 (02:30→20:45)
[2018-03-20 05:00] VITALS: BP 113/64
[2018-03-20] MEDS: traMADol HCL 50 MG TAB PO PRN ×5 (05:36→21:49)
[2018-03-20 08:00] VITALS: BP 111/67
[2018-03-20 08:28] VITALS: BP 111/67
[2018-03-20] MEDS: SPIRONOLACTONE 25 MG TAB PO SCH (09:36)
[2018-03-20] MEDS: POTASSIUM CHL 10 Meq TABLET PO SCH (09:36)
[2018-03-20] MEDS: DULoxetine HCL 30 MG CAP PO SCH (09:36)
[2018-03-20] MEDS: PROPRANOLOL HCL 20 MG TAB PO SCH (09:37)
[2018-03-20] MEDS: FUROSEMIDE 20 MG TAB PO SCH (09:37)
[2018-03-20 12:15] VITALS: BP 110/69
[2018-03-20 21:54] VITALS: BP 113/62
[2018-03-21] MEDS: LACTULOSE 20Gm/30ML SOLN PO SCH ×5 (01:15→18:13)
[2018-03-21 05:01] VITALS: BP 115/73
[2018-03-21] MEDS: traMADol HCL 50 MG TAB PO PRN ×2 (05:03→11:12)
[2018-03-21] MEDS: D5W/SOD CHL 0.45% 1,000 ML IV SCH ×2 (05:54→17:31)
[2018-03-21 06:46] LABS: Albumin 2.2 g/dL (3.4-5.0); BUN/Creatinine Ratio 9.1; Calcium 7.5 mg/dL (8.5-10.1)
[2018-03-21 06:48] LABS: Bilirubin, Total 1.6 mg/dL (0.2-1.0); Total Protein 5.5 g/dL (6.4-8.2)
[2018-03-21 08:46] VITALS: BP 113/73
[2018-03-21] MEDS: PROPRANOLOL HCL 20 MG TAB PO SCH (10:05)
[2018-03-21] MEDS: POTASSIUM CHL 10 Meq TABLET PO SCH (10:06)
[2018-03-21] MEDS: SPIRONOLACTONE 25 MG TAB PO SCH (10:06)
[2018-03-21] MEDS: DULoxetine HCL 30 MG CAP PO SCH (10:07)
[2018-03-21] MEDS: FUROSEMIDE 20 MG TAB PO SCH (10:07)
[2018-03-21 12:15] VITALS: BP 125/55
[2018-03-21 17:04] VITALS: BP 112/69
[2018-03-21 21:30] VITALS: BP 113/73
[2018-03-21 21:59] VITALS: BP 119/68
== END 2018-03-21 21:30 | DRG 441 ==
LOC: EDBD 10:03 → EEVIPCON 10:09 → ER 10:09 → OVERFLOW 10:10 → EAST 15:44
PROVIDERS: ADMIT Internal Medicine; ATTEND Internal Medicine
DX: K72.10 Chronic hepatic failure without coma (principal); E43 Unspecified severe protein-calorie malnutrition; E87.8 Other disorders of electrolyte and fluid balance, not elsewhere classified; J44.9 Chronic obstructive pulmonary disease, unspecified; K74.60 Unspecified cirrhosis of liver; I10 Essential (primary) hypertension; E78.00 Pure hypercholesterolemia, unspecified; E11.9 Type 2 diabetes mellitus without complications; B19.20 Unspecified viral hepatitis C without hepatic coma; F19.90 Other psychoactive substance use, unspecified, uncomplicated; F32.9 Major depressive disorder, single episode, unspecified; F41.9 Anxiety disorder, unspecified; Z82.49 Family history of ischemic heart disease and other diseases of the circulatory system; Z90.49 Acquired absence of other specified parts of digestive tract; Z68.27 Body mass index [BMI] 27.0-27.9, adult
CPT/HCPCS: 36415; 71045; 80048; 80053; 82140; 83735; 84484; 85025; 85610; 87081; 93005; 96360; 96361; J0690; J7042